=== PATIENT | male | born 1980 | race Caucasian/White ===

== ENCOUNTER 2019-04-02 16:58 | Emergency (ER) | payer OTHER ==
[2019-04-02 17:10] VITALS: BP 133/95
--- NOTE | 2019-04-02 17:13 | ED Physician Documentation ---
General Adult - HISTORIAN Historian: patient - HPI Stated Complaint: R Knee pain Chief Complaint: General Adult Additional Information: Patient presents to ED with a 12 hour history of right leg pain. Patient states he worked 4 hours over time yesterday, doing a 12 hours shift, which he is not used to. When he got off work he noticed the "tendons behind his knee tightening up". He states the pain kept him awake all day. He is supposed to go into work tonight. Onset: hours (12) Timing: still present Severity: mild - ROS CONST: no problems EYES/ENT: none CVS/RESP: denies: chest pain, shortness of breath GI/: denies: abdominal pain MS/SKIN/LYMPH: denies: calf pain, neck pain, leg swelling NEURO/PSYCH: headache - PAST HX Past History: none Other History: none Surgeries/Procedures: none Allergies/Adverse Reactions: Allergies Allergy/AdvReac Type Severity Reaction Status Date / Time No Known Allergies Allergy Verified 04/02/19 17:10 Home Medications: Ambulatory Orders Medication Instructions Recorded Orphenadrine (Nf) [Norflex (Nf)] 100 mg PO Q12 PRN #20 tablet.er 04/02/19 - SOCIAL HX Smoking History: cigarettes, greater than 1 pack/day Alcohol Use: none Drug Use: none - FAMILY HX Family History: No - VITAL SIGNS Vital Signs: Vital Signs Temp Pulse Resp BP Pulse Ox 96 H 16 133/95 98 04/02/19 17:00 04/02/19 17:00 04/02/19 17:00 04/02/19 17:00 - REVIEWED ASSESSMENTS Nursing Assessment Reviewed: Yes Vitals Reviewed: Yes ED Results Lab/Radiology - Orders Orders: ED Orders Category Date Time Status Ketorolac Tromethamine [Toradol] Med 04/02/19 17:10 Once 60 mg IM NOW ONE Orphenadrine Citrate [Norflex] Med 04/02/19 17:10 Once 60 mg IM NOW ONE General Adult Physical Exam - PHYSICAL EXAM GENERAL APPEARANCE: no distress EENT: CARLOS NECK: normal inspection RESPIRATORY: no resp distress CVS: reg rate & rhythm ABDOMEN: soft, normal bowel sounds BACK: normal inspection SKIN: warm/dry, normal color EXTREMITIES: normal range of motion, no evidence of injury, no edema, tenderness (right posterior/lateral knee ) NEURO: oriented X3, motor nml, sensation nml, mood/affect nml Discharge Clincal Impression: Musculoskeletal pain of right lower extremity Prescriptions: Orphenadrine (Nf) [Norflex (Nf)] 100 mg PO Q12 PRN #20 tablet.er PRN Reason: muscle spasm/pain Referrals: Primary Doctor,No [Primary Care Provider] - 2 Days Additional Instructions: 1. Ibuprofen 600mg every 6 hours and/or Tylenol 650mg every 4 hours as needed for pain 2. Norflex every 12 hours as needed for muscle spasms 3. Stay active. Physical exercise is a great muscle relaxer 4. Follow up with PCP within 1 week 5. Return to ER for new or worsening symptoms Condition: Stable Disposition: 01 HOME, SELF-CARE Decision to Admit: NO Date of Decison to Admit: 04/02/19 Decision Time: 17:18
[2019-04-02] MEDS: ORPHENADRINE CITRATE 60 MG/2 ML ML IM ONE (17:17)
[2019-04-02] MEDS: KETOROLAC TROMETHAMINE 60 MG/2 ML VIAL IM ONE (17:17)
== END 2019-04-02 17:22 | disposition home or self-care (01) ==
LOC: ED 16:58
DX: M25.561 Pain in right knee (principal)
CPT/HCPCS: 96372; 99284; J1885; J2360